=== PATIENT | male | born 1985 | race Hispanic/Latino ===

== ENCOUNTER 2019-09-13 20:01 | Emergency (ER) | payer MEDICAID ==
[2019-09-13] MEDS ORDERED: SODIUM CHLORIDE 0.9% 1000 ML 1,000 ML IV ONE (20:12)
--- NOTE | 2019-09-13 20:18 | Emergency Department Report ---
HPI - General Chief Complaint: Overdose PUI?: No Time Seen by Provider: 09/13/19 20:05 - HPI HPI: Room 19 The patient is a 33-year-old male present with a chief complaint of heroin overdose. Patient states he remembers using IV heroin but has no other memory after that. Per EMS the patient was [place] blue and un[place]. EMS arrived and administered Narcan 2 mg IV x2 with rapid return to mental baseline. When asked if anything is bothering him the patient states that the only thing that bothers him is his conscience right now. ED Past Medical Hx - Past Medical History Previous Medical History?: Yes Hx Asthma: Yes - Surgical History Past Surgical History?: No Additional Surgical History: Reconstructive surgery right elbow - Family History Family history: no significant - Social History Smoking Status: Current Every Day Smoker (Approximately 1/2 pack/day) Substance Use Type: Heroin (IVDA) - Medications Home Medications: Home Medications Medication Instructions Recorded Confirmed Last Taken Type Fluticasone/Salmeterol [Advair 1 puff IH BID 09/13/19 09/13/19 09/13/19 History Diskus 500-50 mcg] Naloxone HCl [Narcan Nasal [place]] 4 mg NS ONCE PRN #1 bottle 09/13/19 Unknown Rx ED Review of Systems ROS: Stated complaint: OVERDOSE Other details as noted in HPI Constitutional: no symptoms reported Eyes: denies: eye pain ENT: denies: throat pain Respiratory: no symptoms reported Cardiovascular: denies: chest pain Endocrine: no symptoms reported Gastrointestinal: denies: abdominal pain Genitourinary: denies: dysuria Musculoskeletal: denies: back pain Neurological: denies: headache Physical Exam - Physical Exam Vital Signs: Vital Signs 09/13/19 20:12 Temperature 98.3 F Pulse Rate 122 H Respiratory 18 Rate O2 Sat by Pulse 99 Oximetry Physical Exam: GENERAL: The patient is well-developed well-nourished male lying on stretcher not appearing to be in acute distress. [] HEENT: Normocephalic. Atraumatic. Extraocular motions are intact. Patient has moist mucous membranes. NECK: Supple. Trachea midline CHEST/LUNGS: Clear to auscultation. There is no respiratory distress noted. HEART/CARDIOVASCULAR: Regular. There is tachycardia. There is no gallop rub or murmur. ABDOMEN: Abdomen is soft, nontender. Patient has normal bowel sounds. There is no abdominal distention. SKIN: There is no rash. There is no edema. There is no diaphoresis. NEURO: The patient is awake, alert, and oriented. The patient is cooperative. The patient has no focal neurologic deficits. The patient has normal speech MUSCULOSKELETAL: There is no evidence of acute injury. ED Course Vital Signs 09/13/19 20:12 Temperature 98.3 F Pulse Rate 122 H Respiratory 18 Rate O2 Sat by Pulse 99 Oximetry - Reevaluation(s) Reevaluation #1: 09/13/19 23:07 Patient remains asymptomatic. ED Medical Decision Making - Lab Data Result diagrams: 09/13/19 20:11 09/13/19 19:59 Laboratory Tests 09/13/19 09/13/19 09/13/19 19:59 20:11 21:43 WBC 12.9 H RBC 5.32 H Hgb 16.9 H Hct 49.9 H MCV 94 MCH 32 MCHC 34 RDW 13.7 Plt Count 342 Lymph % (Auto) 16.6 [place] % (Auto) 3.8 Eos % (Auto) 1.3 Baso % (Auto) 0.5 Lymph # 2.1 [place] # 0.5 Eos # 0.2 Baso # 0.1 Seg Neutrophils % 77.8 H Seg Neutrophils # 10.1 H Sodium 135 L Potassium 3.9 Chloride 98.3 Carbon Dioxide 22 Anion Gap 19 BUN 16 Creatinine 1.2 Estimated GFR > 60 BUN/Creatinine Ratio 13 Glucose 225 H Calcium 9.3 Total Bilirubin 0.30 AST 26 ALT 28 Alkaline Phosphatase 88 Total Creatine Kinase 107 CK-MB (CK-2) 1.7 CK-MB (CK-2) Rel Index 1.5 Troponin T < 0.010 Total Protein 7.6 Albumin 4.6 Albumin/Globulin Ratio 1.5 Urine Opiates Screen Presumptive positive Urine Methadone Screen Presumptive negative Ur Barbiturates Screen Presumptive negative Ur Phencyclidine Scrn Presumptive negative Ur Amphetamines Screen Presumptive negative U Benzodiazepines Scrn Presumptive negative Urine Cocaine Screen Presumptive positive U Marijuana (THC) Screen Presumptive negative Drugs of Abuse Note Disclamer - EKG Data -: EKG Interpreted by [place] EKG shows normal: sinus rhythm Rate: tachycardia (112 bpm) - EKG Data When compared to previous EKG there are: previous EKG unavailable Interpretation: nonspecific ST-T wave jose (T wave inversion in lead III) - Differential Diagnosis Heroin overdose Critical care attestation.: If time is entered above; I have spent that time in minutes in the direct care of this critically ill patient, excluding procedure time. ED Disposition Clinical Impression: Heroin overdose, Cocaine abuse Disposition: [id number] TO HOME OR SELFCARE Is pt being admited?: No Does the pt Need Aspirin: No Condition: Stable Instructions: Narcotic Abuse (ED), Cocaine Abuse (ED) Additional Instructions: Return to the emergency department should you develop worsening symptoms, inability to tolerate food or liquids, high fever or any other concerns Prescriptions: Naloxone HCl [Narcan Nasal [place]] 4 mg NS ONCE PRN #1 bottle PRN Reason: Opioid Reversal Referrals: PRIMARY CARE, [Primary Care Provider] - 3-[address] [facility] [Outside] - 3-5 Days Time of Disposition: 23:09
[2019-09-13 20:33] LABS: Basophils # (Auto) 0.1 K/mm3 (0.0-0.1); Basophils % (Auto) 0.5 % (0.0-1.8); Eosinophils # (Auto) 0.2 K/mm3 (0.0-0.4); Eosinophils % (Auto) 1.3 % (0.0-4.3); Hematocrit 49.9 % (35.5-45.6); Hemoglobin 16.9 gm/dl (11.8-15.2); Lymphocytes # (Auto) 2.1 K/mm3 (1.2-5.4); Lymphocytes % (Auto) 16.6 % (13.4-35.0); Mean Corpuscular HGB Conc 34 % (32-34); Mean Corpuscular Volume 94 fl (84-94); Monocytes # (Auto) 0.5 K/mm3 (0.0-0.8); Monocytes % (Auto) 3.8 % (0.0-7.3); Platelet Count 342 K/mm3 (140-440); Red Blood Count 5.32 M/mm3 (3.65-5.03); Red Cell Distribution Width 13.7 % (13.2-15.2)
[2019-09-13 20:49] LABS: Creatine Kinase MB 1.7 ng/mL (0.0-4.0)
[2019-09-13 20:50] LABS: Alanine Aminotransferase 28 units/L (7-56); Albumin 4.6 g/dL (3.9-5); BUN/Creatinine Ratio 13; Blood Urea Nitrogen 16 mg/dL (9-20); Calcium 9.3 mg/dL (8.4-10.2); Hemolysis Index 12
[2019-09-13 22:05] LABS: Amphetamine Screen,Urine PRESUMPTIVE NEGATIVE; Benzodiazepines Screen,Urine PRESUMPTIVE NEGATIVE; Cannabinoid Screen,Urine PRESUMPTIVE NEGATIVE; Methadone Screen,Urine PRESUMPTIVE NEGATIVE
[2019-09-13 22:23] LABS: Cocaine Screen,Urine PRESUMPTIVE POSITIVE; Opiate Screen,Urine PRESUMPTIVE POSITIVE
[2019-09-13 22:44] VITALS: BP 157/101
== END 2019-09-13 23:24 | disposition home or self-care (01) ==
LOC: ED 20:01
DX: T40.1X1A Poisoning by heroin, accidental (unintentional), initial encounter (principal); F14.10 Cocaine abuse, uncomplicated; Y92.89 Other specified places as the place of occurrence of the external cause
CPT/HCPCS: 36415; 80053; 80307; 82550; 82553; 84484; 85025; 93005; 99284; J7030